=== PATIENT | female | born 1970 | race Caucasian/White ===

== ENCOUNTER 2017-03-08 20:51 | Emergency (ER) | payer SELFPAY ==
[2017-03-08 21:13] VITALS: BP 128/49; PULSE 78; TEMP 98; BMI 34.0
--- NOTE | 2017-03-08 21:16 | PDOC ---
Rapid Medical Evaluation Chief Complaint: Injury Time Seen by Provider: 03/08/17 21:10 Medical Evaluation: Allergies Allergy/AdvReac Type Severity Reaction Status Date / Time No Known Allergies Allergy Verified 01/20/16 10:12 03/08/17 21:10 The patient presents with a chief complaint of: fall 2 days ago fell back and hit back of head now with dizziness, lower back pain I have performed a brief in-person evaluation of this patient; Pertinent physical exam findings: patient alert ox 3 , + b/l tender chest, tenderness to posterior head no cervical tenderness. + lumbar area tenderness. I have ordered the following: ct head, urine , lumbar spine xray The patient will proceed to the ED for further evaluation. 03/08/17 21:18
--- NOTE | 2017-03-08 22:30 | PDOC ---
History of Present Illness - General Chief Complaint: Injury Stated Complaint: FELL Time Seen by Provider: 03/08/17 21:10 - History of Present Illness Initial Comments: 03/08/17 22:34 Ms. Shelton Rincon is a 46 yo female w/ pmh of DMII on metformin who presents following slip and fall onto her back 2 days ago during the snowstorm. She reports this was a mechanical fall due to snow on her apartment step and that she hit the back of her head. She denies any LOC or double vision but does endorse dizziness for the last day in addition to lower generalized neck and back pain. The patient denies chest pain, shortness of breath, and headache. Denies fever, chills, nausea, vomit, diarrhea and constipation. Denies dysuria, frequency, urgency and hematuria. Allergies: NKDA Past History - Past Medical History Allergies/Adverse Reactions: Allergies Allergy/AdvReac Type Severity Reaction Status Date / Time No Known Allergies Allergy Verified 03/08/17 21:13 Home Medications: Ambulatory Orders Amox-Tr/K Cl [Augmentin 875-125mg Tablet -] 1 tab PO BID@0800,1730 #14 tablet Pseudoephedrine HCl [Sudafed 12-Hour] 120 mg PO BID #14 tablet.er 01/21/16 COPD: No Diabetes: Yes (NIDDM) - Surgical History Abdominal Surgery: Yes (tubal ligation) - Suicide/Smoking/Psychosocial Hx Smoking Status: No Smoking History: Current every day smoker Have you smoked in the past 12 months: Yes Number of Cigarettes Smoked Daily: 5 Information on smoking cessation initiated: No 'Breaking Loose' booklet given: 01/20/16 Hx Alcohol Use: No Drug/Substance Use Hx: No Review of Systems - Review of Systems Comments:: 03/08/17 22:37 GENERAL/CONSTITUTIONAL: No fever or chills. No weakness. HEAD, EYES, EARS, NOSE AND THROAT: No change in vision. No ear pain or discharge. No sore throat. CARDIOVASCULAR: No chest pain or shortness of breath RESPIRATORY: No cough, wheezing, or hemoptysis. GASTROINTESTINAL: No nausea, vomiting, diarrhea or constipation. GENITOURINARY: No dysuria, frequency, or change in urination. MUSCULOSKELETAL: +Generalized lower back pain to palpation. No bony midline tenderness. SKIN: No rash NEUROLOGIC: +Dizziness as described above. ENDOCRINE: No increased thirst. No abnormal weight change HEMATOLOGIC/LYMPHATIC: No anemia, easy bleeding, or history of blood clots. ALLERGIC/IMMUNOLOGIC: No hives or skin allergy. *Physical Exam - Vital Signs Last Vital Signs Temp Pulse Resp BP Pulse Ox 98 F 78 20 128/49 100 03/08/17 21:09 03/08/17 21:09 03/08/17 21:09 03/08/17 21:09 03/08/17 21:09 - Physical Exam Comments: 03/08/17 22:38 GENERAL: Awake, alert, and fully oriented, in no acute distress HEAD: No signs of trauma, normocephalic, atraumatic EYES: PERRLA, EOMI, sclera anicteric, conjunctiva clear ENT: Auricles normal inspection, hearing grossly normal, nares patent, oropharynx clear without exudates. Moist mucosa NECK: +Lateral tenderness to palpation without bony midline tenderness. Normal ROM, supple, no lymphadenopathy, JVD, or masses LUNGS: No distress, speaks full sentences, clear to auscultation bilaterally HEART: Regular rate and rhythm, normal S1 and S2, no murmurs, rubs or gallops, peripheral pulses normal and equal bilaterally. ABDOMEN: Soft, nontender, normoactive bowel sounds. No guarding, no rebound. No masses EXTREMITIES: Normal inspection, Normal range of motion, no edema. No clubbing or cyanosis. NEUROLOGICAL: Cranial nerves II through XII grossly intact. Normal speech, normal gait, no focal sensorimotor deficits SKIN: Warm, Dry, normal turgor, no rashes or lesions noted. ED Treatment Course - ADDITIONAL ORDERS Additional order review: Laboratory Results 03/08/17 21:25 Urine HCG, Qual Negative Medical Decision Making - Medical Decision Making 03/08/17 23:41 Ms. Peoples presents w/ symptoms concerning for acute cranial process. Head CT ordered to r/o; if negative will D/C to home with pain control and instructions to f/u with PCP as needed. 03/08/17 23:51 Patient signed out to Dr. Abraham for further care. *DC/Admit/Observation/Transfer Diagnosis at time of Disposition: Fall Qualifiers: Encounter type: initial encounter Qualified Code(s): W19.XXXA - Unspecified fall, initial encounter - Referrals - Patient Instructions - Post Discharge Activity
--- NOTE | 2017-03-09 00:22 | PDOC ---
*Physical Exam - Vital Signs Last Vital Signs Temp Pulse Resp BP Pulse Ox 98 F 78 20 128/49 100 03/08/17 21:09 03/08/17 21:09 03/08/17 21:09 03/08/17 21:09 03/08/17 21:09 - Physical Exam Comments: 03/09/17 00:26 GENERAL: Awake, alert, and fully oriented, in no acute distress HEAD: No signs of trauma, normocephalic, atraumatic EYES: PERRLA, EOMI, sclera anicteric, conjunctiva clear ENT: Auricles normal inspection, hearing grossly normal, nares patent, oropharynx clear without exudates. Moist mucosa NECK: + paraspinal c spine tenderness to palpation w/out bony midline tenderness. Normal ROM, supple, no lymphadenopathy, JVD, or masses LUNGS: No distress, speaks full sentences, clear to auscultation bilaterally HEART: Regular rate and rhythm, normal S1 and S2, no murmurs, rubs or gallops, peripheral pulses normal and equal bilaterally. ABDOMEN: Soft, nontender, normoactive bowel sounds. No guarding, no rebound. No masses EXTREMITIES: Normal inspection, Normal range of motion, no edema. No clubbing or cyanosis. NEUROLOGICAL: Cranial nerves II through XII grossly intact. Normal speech, normal gait, no focal sensorimotor deficits SKIN: Warm, Dry, normal turgor, no rashes or lesions noted. ED Treatment Course - ADDITIONAL ORDERS Additional order review: Laboratory Results 03/08/17 21:25 Urine HCG, Qual Negative Medical Decision Making - Medical Decision Making 03/09/17 00:[address] Russell 46 yo F w h/o of [facility] who presents 2 day s/p mechanical fall while descending steps with subsequent posterior head trauma. Now presents with dizziness x 1 day and generalized neck and back pain. She denies any LOC, seizures, weakness, sensory change, diplopia. The patient denies chest pain, shortness of breath, and headache. Denies fever, chills, nausea, vomit, diarrhea and constipation. Denies dysuria, frequency, urgency and hematuria. CT HEAD and CT LUMBAR SACRAL SPINE PENDING ED Course: 03/09/17 01:[address] LUM/SAC 03/09/17 01:42 CT HEAD: Unremarkable with no acute pathology. 03/09/17 01:44 Patient imaging results discussed. Patient will follow up with PMD. Stable for d /c with return precautions. *DC/Admit/Observation/Transfer Diagnosis at time of Disposition: Fall Qualifiers: Encounter type: initial encounter Qualified Code(s): W19.XXXA - Unspecified fall, initial encounter - Discharge Dispostion Disposition: HOME Condition at time of disposition: Stable Admit: No - Referrals - Patient Instructions Printed Discharge Instructions: DI for Back Strain or Sprain Additional Instructions: Please return to the emergency department with any new or worsening symptoms or concerns. Please follow up with your primary care physician. - Post Discharge Activity - Attestations Physician Attestion: 03/09/17 01:21 I attest to the information provided in this note.
--- NOTE | 2017-03-09 01:42 | PDOC ---
Attending Attestation - Resident Resident Name: Damian Russell - ED Attending Attestation I have performed the following: I have examined & evaluated the patient, The case was reviewed & discussed with the resident, I agree w/resident's findings & plan, Exceptions are as noted - HPI HPI: 03/09/17 01:41 46 yo female fell 2 days ago and has had dizziness and back pain since that time - Physicial Exam PE: 03/09/17 01:42 wnwd alert and conversant head ncat neck supple eyes raeann eomi lungs cta b/l cvs [id number] abd soft ,nontender ext no deformities neuro axox3,ambulating with ease - Medical Decision Making 03/09/17 01:44 ct head normal study,no skull fx,no bleed motrin for sore back
== END 2017-03-09 01:00 | disposition home or self-care (01) ==
LOC: JER 20:51
DX: S09.90XA Unspecified injury of head, initial encounter (principal); W00.0XXA Fall on same level due to ice and snow, initial encounter; Y93.89 Activity, other specified; Y92.038 Other place in apartment as the place of occurrence of the external cause; E11.9 Type 2 diabetes mellitus without complications; Z79.84 Long term (current) use of oral hypoglycemic drugs; F17.210 Nicotine dependence, cigarettes, uncomplicated
CPT/HCPCS: 70450-TC; 72100-TC; 84703; 99282-25

== ENCOUNTER 2018-04-19 16:49 | Emergency (ER) | payer SELFPAY ==
--- NOTE | 2018-04-19 17:01 | PDOC ---
Rapid Medical Evaluation Chief Complaint: Pain Time Seen by Provider: 04/19/18 16:58 Medical Evaluation: Allergies Allergy/AdvReac Type Severity Reaction Status Date / Time No Known Allergies Allergy Verified 03/08/17 21:13 04/19/18 17:00 I have performed a brief in person evaluation of this patient. The patient's CC: vaginal pain and sinus pain HPI: Pt is a 48 YO female who complains of vaginal "pain" Pt has a hx of STDs. Pt also complains of sinus pain. PE: Skin: Clear Heart: RRR Lungs: Clear MS. moves all extremities without difficulty Neuro: Alert and oriented Psch: appropriate affect The patient will proceed to main ED for further evaluation. Discharge Disposition - Diagnosis Vaginal discharge - Referrals - Patient Instructions - Post Discharge Activity
[2018-04-19 17:03] VITALS: BP 117/89; PULSE 106; TEMP 98.2; BMI 31.9
--- NOTE | 2018-04-19 17:54 | PDOC ---
History of Present Illness - General Chief Complaint: Pain Stated Complaint: BACK PAIN Time Seen by Provider: 04/19/18 16:58 History Source: Patient Exam Limitations: No Limitations - History of Present Illness Travel History: No Initial Comments: 04/19/18 17:49 Patient is here with complaints of vaginal burning and pain over the past few days. has had 3 time history of Trichomonas from her who refuses treatment. States worse infection was many years ago and had 2 more consequential infections that were positive for Trichomonas since that time. 2 days ago 3 days ago started to have some burning and tenderness vaginally and is concerned/worried may have a recurrent infection. Denies fever , states some has mild suprapubic pain. Has not had a pelvic exam in many years. Timing/Duration: reports: getting worse Quality: reports: moderate, aching, fullness Abdominal Pain Onset Location: reports: suprapubic Pain Radiation: reports: no radiation Past History - Travel Traveled outside of the country in the last 30 days: No Close contact w/someone who was outside of country & ill: No - Past Medical History Allergies/Adverse Reactions: Allergies Allergy/AdvReac Type Severity Reaction Status Date / Time No Known Allergies Allergy Verified 04/19/18 17:00 Home Medications: Ambulatory Orders NK [No Known Home Medication] 04/19/18 COPD: No Diabetes: Yes (NIDDM) - Surgical History Abdominal Surgery: Yes (tubal ligation) - Suicide/Smoking/Psychosocial Hx Smoking Status: No Smoking History: Never smoked Have you smoked in the past 12 months: Yes Number of Cigarettes Smoked Daily: 5 'Breaking Loose' booklet given: 01/20/16 Hx Alcohol Use: No Drug/Substance Use Hx: No Review of Systems - Review of Systems Able to Perform ROS?: Yes Is the patient limited Green[place]ic proficient: Yes Constitutional: Yes: Symptoms Reported, See HPI, Malaise. No: Chills, Fever, Loss of Appetite HEENTM: Yes: Symptoms Reported, See HPI, Other (frontal sinus headaches ) Respiratory: Yes: See HPI. No: Symptoms reported, Cough, Orthopnea, Shortness of Breath, Wheezing : Yes: Symptoms Reported, Discharge (white ), Pain Musculoskeletal: No: Symptoms Reported Integumentary: No: Symptoms Reported Neurological: Yes: Symptoms reported, See HPI, Headache All Other Systems: Reviewed and Negative *Physical Exam - Vital Signs Last Vital Signs Temp Pulse Resp BP Pulse Ox 98.2 F 106 H 16 117/89 99 04/19/18 17:00 04/19/18 17:00 04/19/18 17:00 04/19/18 17:00 04/19/18 17:00 - Physical Exam General Appearance: Yes: Nourished, Appropriately Dressed, Mild Distress. No: Apparent Distress HEENT: positive: EMMIE, Normal ENT Inspection, TMs Normal, Pharynx Normal, Sinus Tenderness (mild frontal and max sinus tenderness with no fullness or erythema ) Neck: positive: Supple. negative: Tender, Lymphadenopathy (R), Lymphadenopathy (L) Respiratory/Chest: positive: Lungs Clear, Normal Breath Sounds Female Pelvic Exam: positive: normal external exam, cervical os closed, discharge (scant white nonfetid smelling discharge. No cervical lesions/ Mild./ moderate cervical pain - more pressure. NO uterine massess or pain. Ovaries not palpated ). negative: CMT Gastrointestinal/Abdominal: positive: Soft. negative: Tender Musculoskeletal: positive: Normal Inspection. negative: CVA Tenderness (R) Extremity: positive: Normal Capillary Refill, Normal Inspection, Normal Range of Motion Integumentary: positive: Dry, Warm, Pale Neurologic: positive: application penetration tester II-XII NML intact, Fully Oriented, Alert, Normal Mood/ Affect, Normal Response, Motor Strength 5/5 Moderate Sedation - Procedure Monitoring Vital Signs: Procedure Monitoring Vital Signs Temperature 98.2 F 04/19/18 17:00 Pulse Rate 106 H 04/19/18 17:00 Respiratory Rate 16 04/19/18 17:00 Blood Pressure 117/89 04/19/18 17:00 O2 Sat by Pulse Oximetry (%) 99 04/19/18 17:00 Progress Note - Progress Note Progress Note: Possible STD exposure, will treat with Rocephin and Zithromax for GC and chlamydia. States has Chlamydia recurrance. Patient understands need to follow-up for Pap smear as that is not completed and will consider HIV testing with her [employer] exam. In the emergency department. given 1 g of azithromycin to treat chlamydia, and 1 dose of 250 mg of IM Rocephin to treat gonorrhea. And after 30 minutes of observation *DC/Admit/Observation/Transfer Diagnosis at time of Disposition: Possible exposure to STD - Discharge Dispostion Disposition: HOME Condition at time of disposition: Stable Decision to Admit order: No - Referrals - Patient Instructions Printed Discharge Instructions: Facts About Sexually Transmitted Infections Additional Instructions: You been treated today with azithromycin 1 g by mouth for treatment of presumed chlamydia You have been treated with Rocephin 250 mg injection for treatment of presumned gonorrhea The syphilis test, gonorrhea and chlamydia testing will not be completed for the next few days. You may call and leave message for return phone call with lab results. Be sure to be clear with your name, birthdate, and phone number Always use condoms with the partners Followup with [facility] or PMD in one week for reevaluation and retesting. - Post Discharge Activity Forms/Work/School Notes: Back to Work
[2018-04-19 18:12] LABS: URINE APPEARANCE CLEAR; URINE BILIRUBIN NEGATIVE (<2.0 mg/dL); URINE COLOR LTYELLOW; URINE GLUCOSE (UA) 1+ (NEGATIVE); URINE KETONE NEGATIVE (NEGATIVE); URINE LEUK ESTERASE NEGATIVE (NEGATIVE); URINE NITRITE NEGATIVE (NEGATIVE); URINE PROTEIN NEGATIVE (NEGATIVE); URINE UROBILINOGEN NEGATIVE mg/dL (0.2-1.0)
[2018-04-19] MEDS ORDERED: AZITHROMYCIN 250 MG TABLET PO ONE (19:11)
[2018-04-19] MEDS ORDERED: AZITHROMYCIN 250 MG TABLET ONE (19:13)
== END 2018-04-19 19:47 | disposition home or self-care (01) ==
LOC: JERFT 16:49
DX: Z20.2 Contact with and (suspected) exposure to infections with a predominantly sexual mode of transmission (principal); E11.9 Type 2 diabetes mellitus without complications; Z79.84 Long term (current) use of oral hypoglycemic drugs
CPT/HCPCS: 36415; 81003; 84703; 87086; 87491; 87591; 99281-25